=== PATIENT | male | born 1975 | race Caucasian/White ===

== ENCOUNTER 2016-11-28 18:17 | Observation (INO) ==
[2016-11-28 19:40] LABS: Basophils # 0.1 K/mcL (0.0-0.2); Basophils % 0.8 %; Eosinophils # 0.1 K/mcL (0.0-0.6); Eosinophils % 1.6 %; Hematocrit 45.7 % (37.5-50.1); Hemoglobin 15.6 g/dL (12.9-16.9); Immature Granulocytes % 0.4 % (0-4); Lymphocytes # 2.2 K/mcL (0.6-4.6); Lymphocytes % 27.9 %; Mean Corpuscular HGB Conc 34.1 g/dL (31.6-35.5); Mean Corpuscular Hemoglobin 30.6 pg (28.0-33.3); Mean Corpuscular Volume 89.8 fL (83.0-100.0); Mean Platelet Volume 10.6 fL (9.4-12.4); Monocytes # 0.8 K/mcL (0.0-1.3); Monocytes % 9.9 %; Neutrophils # 4.6 K/mcL (1.6-8.9); Platelet Count 209 K/mcL (140-400); Red Blood Count 5.09 M/mcL (4.19-5.50); Red Cell Distribution Width 13.1 % (11.5-14.5); Segmented Neutrophils % 59.4 %
[2016-11-28 19:45] LABS: INR 1.1; Prothrombin Time 11.5 Seconds (9.4-12.1)
[2016-11-28 19:47] LABS: Activated Partial Thrombo Time 29.4 Seconds (26.0-36.0)
[2016-11-28 19:51] LABS: BUN/Creatinine Ratio 15 (6-26); Blood Urea Nitrogen 15 mg/dL (8-26); Calcium 9.2 mg/dL (8.6-10.8); Carbon Dioxide 25 mEq/L (19-29); Chloride 107 mEq/L (98-109); Glucose 116 mg/dL (70-99); Osmolality,Calculated 294 (280-300); Sodium 141 mEq/L (136-145); eGFR For African Americans > 60 (> 60); eGFR For Non-African Americans > 60 (> 60)
[2016-11-28 19:52] LABS: Potassium 4.1 mEq/L (3.5-4.5)
[2016-11-28] MEDS ORDERED: Aspirin 81 MG TAB.CHEW PO STA (20:13)
--- NOTE | 2016-11-28 20:17 | Emergency Department Note ---
Disposition Clinical Impression: Chest pain Qualifiers: Chest pain type: unspecified Qualified Code(s): R07.9 - Chest pain, unspecified Disposition: Admitted As Inpatient Condition: Good Referrals: Ailyn Ortiz MD [Primary Care Provider] - Forms: ED Satisfaction Letter Chest Pain HPI - General Chief Complaint: ED Chest Pain Stated Complaint: chest is bothering me Time Seen by Provider: 11/28/16 20:09 Source: patient Limitations: no limitations Vital Signs Reviewed: Yes Nursing Notes Reviewed: Yes - History of Present Illness HPI Narrative: 41-year-old male presents to the emergency department with worsening chest pain for the last 2-3 days. Pain is described as a pressure sensation in the middle of his chest that is nonradiating. It is worse with exertion. There is no diaphoresis or nausea with it. He states that the episodes last approximately 5 -7 minutes at a time and come and go somewhat randomly. He is not of a cardiac history. His last stress test was 2-3 years ago from chest pain episode. He cannot remember if it was like this pain or not. There is no other acute changes do not think he can think of that he stopped drinking [employer] recently is not sure if this is happening effect or not. Pt complaint: chest pain Onset (ago): Just [employer] Duration: intermittent Onset: during rest, during exertion Pain Location: substernal Severity: mild Severity scale (1-10): 0 Quality: tightness Pain Radiation: none Improves with: nothing Worsens with: nothing Context: recent illness - Related Data On Oral Contraceptives: No Home Medications Medication Instructions Recorded Confirmed Valacyclovir HCl [Valtrex] 1,000 mg PO DAILY 05/19/16 05/19/16 Previous Rx's Medication Instructions Recorded Cyclobenzaprine [Flexeril] 10 mg PO TID #15 tablet 05/19/16 Naproxen [Naprosyn] 500 mg PO BID PRN #20 tablet 05/19/16 Allergies Allergy/AdvReac Type Severity Reaction Status Date / Time No Known Allergies Allergy Verified 05/19/16 14:48 All systems ED: reviewed and negative except as stated. Constitutional: Reports: as per HPI Eyes: Reports: as per HPI ENT ED: Reports: as per HPI Cardiovascular: Reports: chest pain Respiratory: Reports: as per HPI Gastrointestinal: Reports: as per HPI Chest Pain PMH - Past Medical History Medical history: Reports: no medical history Surgical history: Reports: orthopedic, other Psychiatric history: Reports: no psych history - Social History Smoking Status: Never smoker Alcohol use: Reports: none Drug use: Reports: none Physical Exam - General Limitations: no limitations General appearance: alert, in no apparent distress - Head Head exam: atraumatic - Eye Eye exam: Present: normal appearance - ENT ENT exam: normal exam - Neck Neck exam: Present: normal inspection - Chest Chest inspection: Present: normal inspection - Respiratory Respiratory exam: Present: normal lung sounds bilaterally - Cardiovascular Cardiovascular exam: Present: regular rate, normal rhythm - Abdominal Exam Abdominal exam: Present: soft, Non-Tender - Extremities Exam Extremities exam: Present: normal inspection - Neurological Exam Neurological exam: Present: alert, oriented X3 - Psychiatric Psychiatric exam: Present: normal affect - Skin Skin exam: Present: warm, dry, intact Course Vital Signs Temperature 98.3 F 11/28/16 18:48 Pulse Rate 90 11/28/16 18:48 Respiratory Rate 18 11/28/16 18:48 Blood Pressure 159/86 11/28/16 18:48 O2 Sat by Pulse Oximetry 97 11/28/16 18:48 Temperature 98.3 F 11/28/16 18:48 Pulse Rate 90 11/28/16 20:19 Respiratory Rate 16 11/28/16 20:19 Blood Pressure 133/85 11/28/16 20:19 O2 Sat by Pulse Oximetry 95 11/28/16 20:19 Oxygen Delivery Oxygen Delivery Room Air Chest Pain - MDM Narrative Medical decision making narrative: Patient's labs are unremarkable troponin was negative. EKG shows a right bundle -branch block but no significant changes from prior EKG. He had no chest pain while in the emergency department. His labs were unremarkable. His chest x- ray showed no acute abnormalities. Because of the patient's clinical history that is very concerning for cardiac pain. We will admit to the hospitalist service for further evaluation treatment. Hospitalist notified. Patient remained pain-free while in the emergency department. - Lab Data Lab results reviewed: Yes I reviewed the patient's lab results. Result diagrams: 11/28/16 19:24 11/28/16 19:24 Lab Results 11/28/16 11/28/16 11/28/16 Range/Units 19:24 19:24 19:24 WBC 7.7 (4.3-11.1) K/mcL RBC 5.09 (4.19-5.50) M/mcL Hgb 15.6 (12.9-16.9) g/dL Hct 45.7 (37.5-50.1) % MCV 89.8 (83.0-100.0) fL MCH 30.6 (28.0-33.3) pg MCHC 34.1 (31.6-35.5) g/dL RDW 13.1 (11.5-14.5) % Plt Count 209 (140-400) K/mcL MPV 10.6 (9.4-12.4) fL Immature Gran % 0.4 (0-4) % Seg Neutrophils % 59.4 % Lymphocytes % 27.9 % Monocytes % 9.9 % Eosinophils % 1.6 % Basophils % 0.8 % Neutrophils # 4.6 (1.6-8.9) K/mcL Lymphocytes # 2.2 (0.6-4.6) K/mcL Monocytes # 0.8 (0.0-1.3) K/mcL Eosinophils # 0.1 (0.0-0.6) K/mcL Basophils # 0.1 (0.0-0.2) K/mcL PT 11.5 (9.4-12.1) Seconds INR 1.1 APTT 29.4 (26.0-36.0) Seconds Sodium 141 (136-145) mEq/L Potassium 4.1 (3.5-4.5) mEq/L Chloride 107 (98-109) mEq/L Carbon Dioxide 25 (19-29) mEq/L BUN 15 (8-26) mg/dL Creatinine 1.00 (0.72-1.25) mg/dL Est GFR ( Amer) > 60 (> 60) Est GFR (Non-Af Amer) > 60 (> 60) BUN/Creatinine Ratio 15 (6-26) Glucose 116 H (70-99) mg/dL Calculated Osmolality 294 (280-300) Calcium 9.2 (8.6-10.8) mg/dL Troponin I (0-0.03) ng/mL 11/28/16 Range/Units 19:24 WBC (4.3-11.1) K/mcL RBC (4.19-5.50) M/mcL Hgb (12.9-16.9) g/dL Hct (37.5-50.1) % MCV (83.0-100.0) fL MCH (28.0-33.3) pg MCHC (31.6-35.5) g/dL RDW (11.5-14.5) % Plt Count (140-400) K/mcL MPV (9.4-12.4) fL Immature Gran % (0-4) % Seg Neutrophils % % Lymphocytes % % Monocytes % % Eosinophils % % Basophils % % Neutrophils # (1.6-8.9) K/mcL Lymphocytes # (0.6-4.6) K/mcL Monocytes # (0.0-1.3) K/mcL Eosinophils # (0.0-0.6) K/mcL Basophils # (0.0-0.2) K/mcL PT (9.4-12.1) Seconds INR APTT (26.0-36.0) Seconds Sodium (136-145) mEq/L Potassium (3.5-4.5) mEq/L Chloride (98-109) mEq/L Carbon Dioxide (19-29) mEq/L BUN (8-26) mg/dL Creatinine (0.72-1.25) mg/dL Est GFR ( Amer) (> 60) Est GFR (Non-Af Amer) (> 60) BUN/Creatinine Ratio (6-26) Glucose (70-99) mg/dL Calculated Osmolality (280-300) Calcium (8.6-10.8) mg/dL Troponin I 0.00 (0-0.03) ng/mL - Radiology Data Radiology results reviewed: Yes I reviewed the patient's radiology results. - EKG Data EKG attestation: Yes I reviewed and interpreted this EKG. EKG shows normal: sinus rhythm Rate: normal [place]/QRS: RBBB (Incomplete right bundle-branch block) When compared to previous EKG there are: no significant changes Interpretation: no acute changes
[2016-11-28] MEDS ORDERED: Naloxone 0.4 MG/ML INJ IVP PRN (22:07)
--- NOTE | 2016-11-28 22:27 | Internal Med History&Physical ---
<Hever Limon J - Last Filed: 11/28/16 22:21> Date of Encounter: 11/28/16 Time of Encounter: 22:21 Assessment and Plan (1) Chest pain Current visit: Yes Status: Acute Chest pain/discomfort and palpitations for 2-3 days getting progressively worse. EKG in the ED negative troponin negative at 0.00. Having no chest pain at time of exam, patient admits that the chest pain is intermittent lasting only 5-7 minutes, not associated with activity or rest and is unpredictable. The symptoms he is describing sound more like palpitations however, rule out ACS. Admit for observation Continuous telemetry monitoring Nuclear stress scheduled in the a.m. Nothing by mouth after midnight and no caffeine Cardiology consult for Holter monitor placement before discharge Continuing to trend troponins Qualifiers: Chest pain type: unspecified Qualified Code(s): R07.9 - Chest pain, unspecified (2) Heart palpitations Current visit: Yes Status: Acute 2-3 days history of chest discomfort/pain and palpitations. Place on continuous telemetry. Plan to get nuclear stress in the morning. Consult cardiology. Consult ordered however cardiology not called. Plan is to call cardiology before patient discharges to place Holter monitor. (3) Neurofibromatosis Current visit: Yes Status: Acute History of neurofibromatosis. Sees neurology. (4) DVT prophylaxis Current visit: Yes Status: Acute Limitations of activity due to chest pain/discomfort. Risk for DVT will start DVT prophylaxis Lovenox 40 mg subcutaneous every morning Internal Medicine - H&P: HPI Chief complaint: Chest discomfort/palpitations rule out ACS Admitted From: Home Plans for Post Hospital Care: Home History of present illness: Mr. Moon is a 41 year old male with a past medical history of neurofibromatosis. Otherwise no additional past medical history. Presents to [facility] on 11-28-16 for chest pain/discomfort and palpitations rule out ACS. All information obtained from chart review and patient. Patient complaints of midsternal nonradiating chest pain that he admits that is random and lasting a short amount of time estimated 5-7 minutes. He denies shortness of breath, dizziness, fever, chills, cough. States that the chest pain/discomfort does not get better or worse with activity or rest. The sensations he describes sound like palpitations but there is also concern for unstable angina. Chest x- ray completed in the ED negative for acute pulmonary process. CBC unremarkable , BMP unremarkable, troponin negative at 0.00. He admits to not following regularly with primary care provider, has not had annual lipid or A1c completed. Had a stress test 3 years ago that was negative. He has admitted to [facility] for further workup and evaluation. Past Med Surg Social Fam HX - Past Medical History Medical history: no medical history Psychiatric history: no psych history - Past Surgical History Surgical History: orthopedic, other - Social History Smoking Status: Never smoker Smokeless Tobacco Status: No Alcohol use: none Drug use: none - Family History Grandfather Family Member Ethnicity: Non- Living Status: Hx Family Respiratory Disorders: Yes Father Race: Family Member Ethnicity: Non- Living Status: Still Living Hx Family Autoimmune Disorders: Yes (Neurofibromatosis) Internal Medicine - H&P: Meds Valacyclovir HCl [Valtrex] 1,000 mg PO DAILY 05/19/16 [History] Ammonium Lactate [Amlactin] 1 appl TP DAILY 11/28/16 [History] Allergies No Known Allergies Allergy (Verified 05/19/16 14:48) All Systems PM: A 10-system review of systems was performed and is negative for pertinent findings except as documented above in the HPI. - Constitutional Constitutional: no chills, no excessive sweating, no fatigue, no fever(s), no night sweats - EENT Eyes: no change in vision, no discharge, no pain, no photophobia Ears: no ear discharge, no ear pain, no tinnitus Nose, mouth and throat: no dysphagia, no nasal discharge, no neck pain, no sore throat - Cardiovascular Cardiovascular ROS IM: chest pain (Described as discomfort), palpitations ( Intermittent palpitations with activity and rest.), no diaphoresis, no dyspnea, no edema, no irregular heart rhythm, no lightheadedness, no syncope - Respiratory Respiratory: no cough, no dyspnea, no wheezing, no excessive phlegm production - Gastrointestinal Gastrointestinal: no abdominal pain, no diarrhea, no hematemesis, no hematochezia, no melena, no nausea, no vomiting - Musculoskeletal Musculoskeletal ROS IM: no numbness, no tingling - Integumentary Integumentary IM: no rash, no unusual bruising - Neurological Neurological ROS: no confusion, no convulsions, no focal weakness, no numbness, no tingling, no tremor(s) - Hematologic/Lymphatic Hematologic/Lymphatic: no easy bruising - Constitutional Vitals: Temp Pulse Resp BP Pulse Ox 98.1 F 78 18 130/83 96 11/28/16 21:19 11/28/16 21:19 11/28/16 21:19 11/28/16 21:19 11/28/16 21:19 General appearance: Present: cooperative, A&O X 3, pleasant, no acute distress, answers questions appropriately - Head Head exam: Present: atraumatic, normocephalic - Eye Eye exam: Present: PERRL, conjuntiva pink, sclera anicteric Pupils: Present: PERRL - Neck Neck exam general surgery: Present: supple, trachea midline. Absent: lymphadenopathy - Respiratory Respiratory exam: Present: CTAB. Absent: accessory muscle use, rales, rhonchi, wheezes - Cardiovascular Cardiovascular exam: Present: RRR, +S1, +S2. Absent: diastolic murmur, gallop, rubs, systolic murmur - GI/Abdominal GI/Abdominal exam: Present: normal bowel sounds, soft, no peritoneal signs. Absent: distended, tenderness - Extremities Exam Extremities exam: Present: warm, radial pulses palpable and symmetrical. Absent : calf tenderness, cyanotic, pedal edema - Neurological Exam Neurological exam: Present: CN II-XII intact, oriented X3, no focal deficits. Absent: pronater drift, facial droop, speech deficit - Skin Skin exam: Present: dry, intact Additional comments: has history of neurofibromatosis evidence of disease as evidenced by fibroids throughout all limbs and trunk anterior-posterior Internal Med - H&P Results - Labs CBC & Chem 7: 11/28/16 19:24 11/28/16 19:24 - EKG Data -: EKG Interpreted by Myself EKG shows normal: sinus rhythm Rate: normal - EKG Data Interpretation IM: normal EKG - Diagnostic Studies Chest x-ray Status: image reviewed by me (No evidence of acute pulmonary process) <Joce Martinez - Last Filed: 11/28/16 22:43> Date of Encounter: 11/28/16 Internal Medicine - H&P: HPI History of present illness: Mr. Moon is a 41 year old male All Systems PM: A 10-system review of systems was performed and is negative for pertinent findings except as documented above in the HPI. - Constitutional Vitals: Temp Pulse Resp BP Pulse Ox 98.1 F 78 18 130/83 96 11/28/16 21:19 11/28/16 21:19 11/28/16 21:19 11/28/16 21:19 11/28/16 21:19 Internal Med - H&P Results - Labs CBC & Chem 7: 11/28/16 19:24 11/28/16 19:24 - Attending Attestation I have personally performed a face to face evaluation on this patient. I have reviewed and agree with the care plan. History and Exam by me shows: 41-year-old gentleman who experienced 3 day history of localized chest palpitation. He decided to come into the hospital for evaluation because of his asking. Describes palpitation, flutter sensation that is localized without radiation and associated with some discomfort locally. He would often notice them when he is relaxing and his couch. No issues with exertion. He denies any cardiac history and takes only Valtrex. EKG in the ER demonstrated rate of 97, a right bundle branch block that did not appear new. He was therefore admitted from the ER for chest pain evaluation General - AAO x 3 Psych - Appropriate affect/speech. No agitation Eyes - SUSIE. Eye lids intact. No scleral icterus ENT - Oral mucosa pink, dentition intact. External ear clear/dry/intact. No thyromegaly Lymphatics - No cervical/inguinal lympadenopathy Neuro - No gross peripheral or central neuro deficits with intact CN 2-12 exam Heart - Sinus. RRR. S1 and S2 present. No added HS/murmurs appreciated. No elevated JVD appreciated. No calf swellings/erythema Lung - Adequate air entry b/l, No crackes/wheezes appreciated GI - Soft, non-tender. No hepatosplenomegaly/ascities. BS+ - No CVA/suprapubic tenderness or palpable bladder distension Skin - neurofibroma skin findings MSK - Joints with normal ROM. No joint swellings ROS 14 point review of systems reviewed as best as possible given presentation. Pertinent positive or negative as per HPI or otherwise reviewed as negative Chest pain equivalent vs. arrythmia - stress test for risk stratification - Holter , consult cards for outpatient review NF1 - stable. observation
[2016-11-29 03:19] LABS: Basophils % 0.5 %; Eosinophils # 0.1 K/mcL (0.0-0.6); Eosinophils % 2.2 %; Hemoglobin 15.3 g/dL (12.9-16.9); Immature Granulocytes % 0.5 % (0-4); Lymphocytes # 2.1 K/mcL (0.6-4.6); Lymphocytes % 33.1 %; Mean Corpuscular Hemoglobin 30.8 pg (28.0-33.3); Mean Corpuscular Volume 90.7 fL (83.0-100.0); Mean Platelet Volume 10.3 fL (9.4-12.4); Monocytes # 0.7 K/mcL (0.0-1.3); Monocytes % 10.6 %; Neutrophils # 3.4 K/mcL (1.6-8.9); Platelet Count 183 K/mcL (140-400); Red Blood Count 4.96 M/mcL (4.19-5.50); Red Cell Distribution Width 13.2 % (11.5-14.5); Segmented Neutrophils % 53.1 %
[2016-11-29 03:27] LABS: Hemoglobin A1C 5.1 %
[2016-11-29 03:30] LABS: BUN/Creatinine Ratio 18 (6-26); Blood Urea Nitrogen 16 mg/dL (8-26); Carbon Dioxide 27 mEq/L (19-29); Chloride 108 mEq/L (98-109); Chol/HDL Ratio 8.1 (0-4.9); Cholesterol 266 mg/dL (< 200); Glucose 96 mg/dL (70-99); HDL Cholesterol 33 mg/dL (40-59); LDL Cholesterol,Calculated 171 mg/dL (0-99); Osmolality,Calculated 293 (280-300); Potassium 4.1 mEq/L (3.5-4.5); Sodium 141 mEq/L (136-145); Triglycerides 310 mg/dL (< 150); eGFR For African Americans > 60 (> 60); eGFR For Non-African Americans > 60 (> 60)
[2016-11-29] MEDS ORDERED: Regadenoson 0.4 MG/5 ML SYRINGE IVP ONE (06:05)
[2016-11-29] MEDS: *HR* Enoxaparin 40 MG/0.4 ML SYRINGE SQ SCH (08:59)
[2016-11-29] MEDS: valACYclovir 500 MG TABLET PO SCH (09:01)
--- NOTE | 2016-11-29 14:36 | Internal Med Progress Note ---
Date of Encounter: 11/29/16 Time of Encounter: 10:35 - Assessment and plan (1) Chest pain Current Visit: Yes Status: Acute Assessment and plan: Chest pain has resolved. Stress test in progress and will be completed tomorrow with repeat images. We will continue to monitor with telemetry. Low risk for complications at this time is troponins have been negative. Qualifiers: Chest pain type: precordial pain Qualified Code(s): R07.2 - Precordial pain (2) Heart palpitations Current Visit: Yes Status: Chronic Assessment and plan: No abnormal rhythms identified On telemetry. Recommend outpatient Holter monitoring at discharge. We will arrange with cardiology (3) Neurofibromatosis Current Visit: Yes Status: Acute (4) DVT prophylaxis Current Visit: Yes Status: Acute (5) Hyperlipidemia Current Visit: Yes Status: Acute Assessment and plan: Patient has hyperlipidemia with LDL of 171. Will place patient on statin. Qualifiers: Hyperlipidemia type: mixed hyperlipidemia Qualified Code(s): E78.2 - Mixed hyperlipidemia - Subjective Interval history: Denies any chest pain or shortness of breath. No palpitations today. Feeling good. No new complaints at this time - Constitutional Vitals: Temp Pulse Resp BP Pulse Ox 98.1 F 86 17 133/76 99 11/29/16 10:53 11/29/16 10:53 11/29/16 10:53 11/29/16 10:53 11/29/16 10:53 General appearance: Present: cooperative, A&O X 3, pleasant, no acute distress, answers questions appropriately - Respiratory Respiratory exam: Present: CTAB. Absent: accessory muscle use, rales, rhonchi, wheezes - Cardiovascular Cardiovascular exam: Present: RRR, +S1, +S2. Absent: diastolic murmur, gallop, rubs, systolic murmur - GI/Abdominal GI/Abdominal exam: Present: normal bowel sounds, soft, no peritoneal signs. Absent: distended, tenderness - Extremities Exam Extremities exam: Present: warm, radial pulses palpable and symmetrical. Absent : calf tenderness, cyanotic, pedal edema Internal Medicine: Result - Labs CBC & Chem 7: 11/29/16 03:08 11/29/16 03:08 Labs: Short CBC 11/29/16 Range/Units 03:08 WBC 6.3 (4.3-11.1) K/mcL Hgb 15.3 (12.9-16.9) g/dL Hct 45.0 (37.5-50.1) % Plt Count 183 (140-400) K/mcL Neutrophils # 3.4 (1.6-8.9) K/mcL BMP 11/29/16 03:08 Sodium 141 Potassium 4.1 Chloride 108 Carbon Dioxide 27 BUN 16 Creatinine 0.87 Glucose 96 Calcium 9.0 Cardiac Enzymes 11/29/16 11/29/16 Range/Units 03:08 09:16 Troponin I 0.01 0.01 (0-0.03) ng/mL - ABG Interpretation ABG results: PT/INR, D-dimer PT 11.5 Seconds (9.4-12.1) 11/28/16 19:24 Consult Discharge Plan - Plan Referrals: Ailyn Ortiz MD [Primary Care Provider] -
--- NOTE | 2016-11-29 14:47 | Electrocardiograph Report ---
[address] [address] Test Date: 2016-11-28 Pat Name: Joe Moon Department: 105 Room: [facility] Gender: M Senior Research Manager: AM : 1975 Requested By: Demarco Mccray Order Number: [id number] Reading MD: Ailyn Cole Measurements Intervals [place] Rate: 97 P: 28 AK: 189 QRS: -9 QRSD: 109 T: 42 QT: 343 QTc: 398 Interpretive Statements SINUS RHYTHM INCOMPLETE RIGHT BUNDLE BRANCH BLOCK Electronically Signed On 11-29-2016 14:45:00 EDT by Ailyn Cole
[2016-11-30] MEDS: *HR* Enoxaparin 40 MG/0.4 ML SYRINGE SQ SCH (07:25)
[2016-11-30 08:11] VITALS: BP 127/79
[2016-11-30] MEDS: valACYclovir 500 MG TABLET PO SCH (10:33)
--- NOTE | 2016-11-30 11:43 | Nuclear Medicine Stress Report ---
Regadenoson Nuclear 2 day Name: Joe Moon Date of Study: 11/29/2016 Date: 1975 Ht: 66.0 in Medical Record#: [id number] Age: 41 Wt: 268.0 lb Gender: Male Order #: [id number] Location: [facility] Room: [facility] Supervising Provider: Allison Jay CNP Reading Physician: Fadi Gerber MD, [facility] Ordering Physician: Jessika Garrett MD Primary Care Physician: Ailyn Ortiz MD Stress Technologist: Mhosen Shi CRT Power Sweeper Operator: Tony Holt Indications: Chest Pain Impression: Perfusion imaging was negative for ischemia or infarct. Pharmacologic ECG was non diagnostic for ischemia. Normal hemodynamic response. Patient had no chest pain with stress. No arrhythmias noted with stress. Gated EF = >70%. The LV is not dilated. There is no evidence of TID. Stress Test Summary: Stress Test Type: Pharmacologic Regadenoson 0.4mg/5ml given IV Baseline Information: Initial Heart Rate: 75 Blood Pressure: 128/70 Stress Information: Test Terminated Due to (primary): As per protocol Maximum Blood Pressure: 132/72 Maximum Heart Rate: 100 Percent Maximum Heart Rate Achieved: 56 Double Product: [id number] METS Reached: 1 Symptoms: No chest symptoms Nuclear Summary: SPECT myocardial perfusion imaging using Tc99m Sestamibi given intravenously was performed at rest and following cardiac stress testing. The resting images were obtained following initial dose of 28.9 mCi. Following stress an additional dose of 33.6 mCi was given at peak exercise or 30 seconds post regadenoson infusion. Medication Given: Time Medication Dose Units Route Findings: STRESS * STRESS Stress Note * Resting ECG demonstrated normal sinus rhythm. * No baseline arrhythmias were noted. * Pharmacologic stress ECG is non diagnostic for ischemia due to failure to reach target heartrate. * No chest pain or arrhythmias during stress. Hemodynamic responses * Normal hemodynamic responses to pharmacologic stress. Study Quality * Study quality is good. Gated EF > 70% * Gated EF > 70%. Left Ventricle * The left ventricle is not dilated. NORMALS * Normal wall motion. * Normal segmental perfusion in stress. * Normal Segmental Perfusion in rest. TID * No evidence of transient ischemic dilatation. Updated by Fadi Gerber MD, FACC on 11/30/2016 11:37:11 AM electronically signed on 11/30/2016 11:37:29 AM with status of Final
--- NOTE | 2016-11-30 12:31 | Discharge Summary ---
Date of Encounter: 11/30/16 Time of Encounter: 12:29 - Discharge Diagnosis (1) Chest pain Priority: Primary Status: Acute Qualifiers: Chest pain type: precordial pain Qualified Code(s): R07.2 - Precordial pain (2) Heart palpitations Priority: Secondary Status: Chronic (3) Neurofibromatosis Priority: Secondary Status: Acute (4) DVT prophylaxis Priority: Secondary Status: Acute (5) Hyperlipidemia Priority: Secondary Status: Acute Qualifiers: Hyperlipidemia type: mixed hyperlipidemia Qualified Code(s): E78.2 - Mixed hyperlipidemia - Discharge Medications Prescriptions: Simvastatin [Zocor] 40 mg PO HS #30 tab Home Medications: Valacyclovir HCl [Valtrex] 1,000 mg PO DAILY 05/19/16 [History] Ammonium Lactate [Amlactin] 1 appl TP DAILY 11/28/16 [History] Simvastatin [Zocor] 40 mg PO HS #30 tab 11/30/16 [Rx] Allergies/Adverse Reactions: Allergies No Known Allergies Allergy (Verified 05/19/16 14:48) Procedures/tests Complete & Pending: Procedures Performed prior 72 hours Category Date Time Status NM karely perf SPECT multi [NM] Routine Exams 11/28/16 22:20 Taken ECG 48 holter monitor setup [ECG] Routine Y 11/29/16 11:00 Ordered SP pharm nuclear stress Routine Y 11/29/16 07:30 Completed Date of admission: 11/28/16 20:38 Primary care physician: Ailyn Ortiz MD Discharging clinician: Jessika Garrett Anticipated date of discharge: 11/30/16 - Patient Status Disposition: Home, Self-Care Condition: Good Functional capacity at discharge: independent ambulation Overall status at discharge: patient is progressing back to baseline - Discharge Instructions Instructions: Chest Pain (DC) Follow Up With: Ailyn Ortiz MD [Primary Care Provider] - (in 1-2 weeks) Additional Instructions: Follow up with Cardiology in 1 week for Holter Monitor follow up Ok to remove holter monitor for showers, replace pads. Be sure to not get monitor wet. - Diet and Activity Activity: increase activity as tolerated Diet: low fat, low cholesterol, low salt diet Hospital course: Mr. Moon is a 41 year old male with a history of neurofibromatosis was hospitalized here after presenting with complaints of palpitations and some chest discomfort. He was evaluated with troponins and cardiac EKG. No abnormalities were found. Troponins were negative. Patient then underwent cardiac stress test which was negative for ischemia. Patient does drink a lot of caffeine in the form of soda and has been advised to cut down on caffeine. This could be contributing to his palpitations. He will also be discharged with a Holter monitor and will follow up with cardiology for further evaluation. His cholesterol levels were elevated and he has been placed on Zocor. - Time Spent with Patient Total time spent providing and/or coordinating discharge services: Greater than 30 minutes (35 min) - Constitutional Vitals: Temp Pulse Resp BP Pulse Ox 98.3 F 69 16 127/79 97 11/30/16 08:06 11/30/16 08:06 11/30/16 08:06 11/30/16 08:06 11/30/16 08:06 General appearance: Present: cooperative, A&O X 3, pleasant, no acute distress, answers questions appropriately - Respiratory Respiratory exam: Present: CTAB. Absent: accessory muscle use, rales, rhonchi, wheezes - Cardiovascular Cardiovascular exam: Present: RRR, +S1, +S2. Absent: diastolic murmur, gallop, rubs, systolic murmur - GI/Abdominal GI/Abdominal exam: Present: normal bowel sounds, soft, no peritoneal signs. Absent: distended, tenderness - Extremities Exam Extremities exam: Present: warm, radial pulses palpable and symmetrical. Absent : calf tenderness, cyanotic, pedal edema - Neurological Exam Neurological exam: Present: alert, oriented X3, no focal deficits. Absent: facial droop, speech deficit
--- NOTE | 2016-12-04 21:20 | Holter Monitor Report ---
[address] [place], [place] [address] Test Date: 2016-11-30 Pat Name: Joe Moon Department: Room: [facility] Gender: M Community Ambassador: Angie Bentley : 1975 Requested By: Jessika Garrett Order Number: [id number] Reading MD: Codi Walker Interpretive Statements [address] [place] [id number] Monitor Duration: 48 Indications: PALP Recording Time: 40:44 Time Analyzed: 39:23 Quality of Tracing: poor Diary: yes Description of symptoms: no ECG demonstrates: Totals: There were [id number] total beats, including ectopy. Average HR was 77. Minimum HR of 50 occurred at 23:11D2 and maximum HR of 124 occurred at 06:59D3. Ventricular Ectopy consisted of 28 total beats averaging 0.7 beats per hour, 0 paired PVCs. There were 21 single PVCs. 0 episodes of bigeminy, and 2 episodes of trigeminy. Supraventricular Ectopy consisted of 2 total single beats. There is 0 evidence of any pauses. Impression: Underlying rhythm is sinus. Ectopic atrial rhythm is observed. Infrequent ventricular and supraventricular ectopy. No diary entries. Electronically Signed On 12-04-2016 21:18:35 EDT by Codi Walker
== END 2016-11-30 14:30 | disposition home or self-care (01) ==
LOC: EMEROO 18:17 → 3NENU 18:17
PROVIDERS: ADMIT Internal Medicine; ATTEND Internal Medicine